=== PATIENT | female | born 1935 | race Caucasian/White ===

== ENCOUNTER 2024-02-19 10:56 | Emergency (ER) | payer OTHER, SELFPAY ==
[2024-02-19 11:05] VITALS: BP 136/87
[2024-02-19 11:34] LABS: Urine Albumin Trace (Neg - Trace); Urine Bilirubin Negative (Negative); Urine Character Clear (Clear); Urine Glucose Negative (Negative); Urine Ketone Trace (Negative); Urine Leukocyte Trace (Negative); Urine Nitrite Negative (Negative); Urine Occult Blood Trace (Negative); Urine Urobilinogen Negative (Neg - 1+)
[2024-02-19 11:35] LABS: Urine Color Yellow
[2024-02-19 11:40] VITALS: BP 132/77
--- NOTE | 2024-02-19 11:44 | ED.GENMED ---
History of Present Illness
General
Chief Complaint: Abdominal Pain
Source: patient
Exam Limitations: none
Time Seen by Provider: 02/19/24 11:32
Nursing documentation reviewed up to this point in time: agreed with
History of Present Illness
History of Present Illness:
88-year-old female with history of COPD, HTN, HLD, diverticulitis, GERD, hypothyroid, appendectomy, tubal ligation presents for 'pain from my waist down,' and abdominal bloating. [facility] and is
on amoxicillin for that, she states her abdominal pain is worsening. She also states she has started with diarrhea with inability to control her bowel movement. She denies blood in her stool. She denies fever or chills.
Past History
Past History
ED Past Medical History: Arrthythmia (PAF), Asthma, COPD, GERD, HTN, Hypercholesterolemia, Hypothyroidism and Other (UTI, Pylenephritis, Diverticulitis)
ED Past Surgical History: Appendectomy and Bowel resection (for diverticulitis)
Social History
Tobacco: Former smoker
Alcohol: None
Drug: None
Personal:
Living: alone
Employment: Retired
Family History
Family History: Other (Noncontributory)
Review of Systems
Review of Systems
Allergies reviewed?: Yes
All Other Systems: ROS reviewed and negative except as documented in HPI and ROS
Constitutional: Denies fever
Respiratory: Denies trouble breathing
Cardiac: Denies chest pain
ABD/GI: Reports abdominal pain, diarrhea and anorexia; Denies nausea, vomiting, bloody stools or black stools
: Denies dysuria, frequency or difficulty voiding
Musculoskeletal: Reports no symptoms
Skin: Reports no symptoms
Neurological: Reports no symptoms
Phy Exam
Physical Exam
Physical Exam:
GENERAL: No acute distress. A&Ox3. Elderly and frail, cachectic
CONSTITUTIONAL: Afebrile.
EYES: clear, conjunctivae normal
ENMT: moist mucus membranes, Pharynx nl
RESPIRATORY: Regular respirations, nonlabored, lungs clear.
CARDIOVASCULAR: Regular rate and rhythm, no murmurs, no rubs.
GI: Soft, distended, generally tender to palpation, normal BS
MUSCULOSKELETAL: Moves with ease. Well perfused.
SKIN: Warm, dry, pink
PSYCH: Normal mood and affect. Well kept, interactive and appropriate
NEUROLOGIC: Awake, alert and oriented. No focal neurological deficits
Course
Orders/Labs/Results
Orders:
Orders
02/19/24 11:20
Urinalysis Reflex To Culture Urgent
Date Specimen was Collected: 02/19/24
Time Specimen was Collected: 11:11
Urine Microscopic Reflex Cult Urgent
02/19/24 11:39
Complete Blood Count/With Diff Urgent
Comprehensive Metabolic Panel Urgent
Lipase Urgent
02/19/24 11:43
0.9% Sodium Chloride 500 ml [Nss] 500 ml IV BOLUS
02/19/24 11:44
CT Abd/pel W Iv And Oral Contr Urgent
Comment:
Reason For Exam: general abdomina pain and bloating
Iohexol [Omnipaque] See Protocol PO NOW STA
02/19/24 13:25
Stool Culture Urgent
JOSE Source: Feces/Stool
Specimen Description:
Date Specimen was Collected: 02/19/24
Time Specimen was Collected: 13:15
02/19/24 16:19
Acetaminophen [Tylenol] 1,000 mg PO NOW STA
02/19/24 16:21
Ketorolac [Toradol] 15 mg IV NOW STA
02/19/24 16:22
Lactic Acid Urgent
Abnormal Lab Results
02/19/24 02/19/24
11:20 11:39
WBC 14.9 H 10^3/uL
(4.8-10.8)
MCHC 32.8 L g/dL
(33.0-37.0)
Abs Immat Gran (auto) 0.1 H 10^3/uL
(0-0.05)
Absolute Neuts (auto) 12.2 H 10^3/uL
(1.4-6.5)
Absolute Lymphs (auto) 0.8 L 10^3/uL
(1.2-3.4)
Absolute Monos (auto) 1.7 H 10^3/uL
(0.1-0.6)
Neutrophils % 81.7 H %
(42.2-75.2)
Lymphocytes % 5.6 L %
(20.5-51.1)
Monocytes % 11.6 H %
(1.7-9.3)
Glucose 115 H mg/dl
(70-99)
Total Bilirubin 1.4 H mg/dl
(0.2-1.3)
Urine Ketones Trace A
(Negative)
Ur Occult Blood Reflex Trace A
(Negative)
Leukocyte Esterase Rfl Trace A
(Negative)
02/19/24 11:39
02/19/24 11:39
Vital Signs
Initial and Last Documented VS:
Initial Vital Signs
Temp Pulse Resp BP Pulse Ox
98.1 F 106 20 136/87 97
02/19/24 11:05 02/19/24 11:05 02/19/24 11:05 02/19/24 11:05 02/19/24 11:05
Last Documented Vital Signs
Temp Pulse Resp BP Pulse Ox
98.1 F 89 19 137/80 91
02/19/24 11:05 02/19/24 16:16 02/19/24 16:16 02/19/24 16:16 02/19/24 16:16
MDM/Problems Addressed
Differential Diagnosis Includes:
Diverticulitis, bowel obstruction, colitis, c-diff, ischemic bowel
MDM/Problems Addressed:
88-year-old female with history of COPD, HTN, HLD, diverticulitis, GERD, hypothyroid, appendectomy, tubal ligation presents for 'pain from my waist down,' and abdominal bloating. [facility] ago and is
on amoxicillin for that, she states her abdominal pain is worsening. She also states she has started with diarrhea with inability to control her bowel movement. She denies blood in her stool. She denies fever or chills.
Afebrile, NAD
CBC: WBC 14.9
CMP: Normal
UA negative
Lipase WNL
4:00 PM:
CT abdomen pelvis with p.o. and IV contrast radiology report read: IMPRESSION:
1).There is mild bowel wall thickening in the nondistended splenic flexure and proximal descending colon suggesting possible colitis..
2). Nonurgent findings include:
-Proximal sigmoid anastomosis
-Degenerative disc disease at L4-5
-Bilateral renal cysts
-Mild interstitial scarring in the posterior left lung base
Elderly frail female lives at home with and son, good family support. Afebrile, no dehydration, already on Augmentin for UTI
Pt states pain is 5/10 and she has a headache. Patient cannot swallow pills, Toradol 15 mg ordered for headache and to see if it will help her abdominal pain.
Lactic acid ordered
Lab reports that stool was too formed to do test for C. difficile or culture.
Lactic normal
Pt and family comfortable going home.
Return instructions reviewed
*Critical Care Note
Total Time (30-74mins, 75-104mins- exclusive of procedures): Not Applicable
ED Attending Note
-
Portions of this chart may have been created with voice recognition software.� Occasional wrong word or��sound alike� substitutions may have occurred due to the inherent limitations of voice recognition software.
Discharge Plan
Departure
Patient Disposition: Home (Routine Discharge)
Date of Disposition: 02/19/24
Time of Disposition: 16:46
Patient with high blood pressure during this ER visit?: No
Condition: Fair
Discharge Problem:
Colitis
Instructions: Clear Liquid Diet, [place] Diet, Colitis - Discharge instructions
Prescriptions:
No Action
aspirin 81 MG tablet,delayed release (DR/EC)
81 mg PO DAILY
budesonide 0.5 MG/2 ML suspension for nebulization
0.5 mg inhalation BID
tiotropium bromide [Spiriva with HandiHaler] 18 MCG capsule, w/inhalation device
18 mcg inhalation R DAILY Qty: 30 0RF
albuterol sulfate [Ventolin HFA] 90 MCG/PUFF HFA aerosol inhaler
1 puff inhalation PRN PRN (Reason: sob)
levalbuterol HCl 0.63 MG/3 ML solution for nebulization
0.63 mg inhalation BID
verapamil 180 MG tablet extended release
240 mg PO DAILY
famotidine 20 MG tablet
20 mg PO BID Qty: 28 0RF
Rx Instructions:
Take 20 mg twice a day for 14 days
cholecalciferol (vitamin D3) 1,000 UNITS tablet
2,000 units PO DAILY Qty: 28 0RF
Rx Instructions:
Take 2,000 units daily for 14 days
levothyroxine 100 MCG tablet
125 mcg PO DAILY@0700
doxycycline hyclate 100 MG capsule
100 mg PO Q12 Qty: 11 0RF
guaifenesin [Mucus Relief ER] 600 MG tablet extended release 12hr
600 mg PO Q12 0RF
prednisone 10 MG tablet
10 mg PO DAILY Qty: 30 0RF
Rx Instructions:
4 tabs daily x 3 days, 3 tabs daily x 3 days, 2 tabs daily x 3 days, 1 tab daily x 3 days.
Referrals:
Kevin Doshi DO [Family Provider] -
Zohreh Castano DO [Active] - Call in 1-3 days for appt
Activity Restrictions/Additional Instructions:
As we discussed, continue your Augmentin and finish it out as prescribed.
Call and make appointment to see the GI doctor next week.
Return here immediately for vomiting, worsening abdominal pain, bloody stools, fever or feeling sicker in any way.
Clear liquids for 2 days, then bland diet, then advance diet as tolerated
Interventions
Interventions:
*Risk Screen - Suicide Last Done: 02/19/24 11:05
*General Assessment Last Done: 02/19/24 11:05
*Neglect/Abuse Screening Last Done: 02/19/24 11:05
ED- Fall Risk Assessment Last Done: 02/19/24 12:00
[facility] Assessment Last Done: 02/19/24 12:00
Discharge Date and Time
Print Language: MALIAN
[2024-02-19 11:49] LABS: Urine Red Blood Cell 0-2 /HPF (0-2); Urine White Cell 0-2 /HPF (0-5)
[2024-02-19] MEDS: OMNIPAQUE 50 ML PO (11:53)
[2024-02-19] MEDS: NSS 500 IV (11:53)
[2024-02-19 11:56] LABS: % Basophils 0.4 % (0-2); % Eosinophils 0.3 % (0-6); % Immature Granulocytes 0.4 % (0-0.5); % Lymphocytes 5.6 % (20.5-51.1); % Monocytes 11.6 % (1.7-9.3); % Neutrophils 81.7 % (42.2-75.2); Absolute Basophils 0.1 10^3/uL (0-0.2); Absolute Immature Granulocytes 0.1 10^3/uL (0-0.05); Absolute Lymphocytes 0.8 10^3/uL (1.2-3.4); Absolute Monocytes 1.7 10^3/uL (0.1-0.6); Absolute Neutrophils 12.2 10^3/uL (1.4-6.5); Hematocrit 41.2 % (37.0-47.0); Hemoglobin 13.5 g/dL (12.0-16.0); Mean Corp Hgb Conc. 32.8 g/dL (33.0-37.0); Mean Corpuscular Volume 88.6 fL (81.0-99.0); Nucleated Red Blood Cells % 0 %; Platelet Count 259 10^3/uL (130-400); Red Blood Cell Count 4.65 10^6/uL (4.20-5.40); Red Cell Dist. Width 13.6 % (11.5-14.5); White Blood Cell Count 14.9 10^3/uL (4.8-10.8)
[2024-02-19 12:23] LABS: ALT (SGPT) 16 U/L (0-35); AST (SGOT) 24 U/L (14-36); Alkaline Phosphatase 103 U/L (38-126); Blood Urea Nitrogen 16 mg/dl (7-17); Carbon Dioxide 24 mmol/L (22-30); Chloride 100 mmol/L (98-107); Glucose 115 mg/dl (70-99); Potassium 4.1 mmol/L (3.5-5.1); Sodium 135 mmol/L (135-145); Total Bilirubin 1.4 mg/dl (0.2-1.3); Total Protein 6.8 g/dl (6.3-8.2); eGFR > 60.00
[2024-02-19 13:10] LABS: Lipase 67 U/L (23-300)
[2024-02-19 16:16] VITALS: BP 137/80
[2024-02-19] MEDS: TORADOL 15 MG IV (16:24)
[2024-02-19 16:39] LABS: Lactic Acid 0.8 mmol/L (0.7-2.0)
== END 2024-02-19 16:59 | disposition home or self-care (01) ==
LOC: EMR 10:56
PROVIDERS: Registered Nurse; EMERGENCY PHYSICIAN Emergency Medicine; FAMILY PHYSICIAN Internal Medicine
DX: K52.9 Noninfective gastroenteritis and colitis, unspecified (principal); N39.0 Urinary tract infection, site not specified; R14.0 Abdominal distension (gaseous); J44.89 Other specified chronic obstructive pulmonary disease; I10 Essential (primary) hypertension; E78.00 Pure hypercholesterolemia, unspecified; E03.9 Hypothyroidism, unspecified; K57.92 Diverticulitis of intestine, part unspecified, without perforation or abscess without bleeding; I48.0 Paroxysmal atrial fibrillation; K21.9 Gastro-esophageal reflux disease without esophagitis; Z79.82 Long term (current) use of aspirin; Z87.440 Personal history of urinary (tract) infections; Z87.01 Personal history of pneumonia (recurrent); Z87.891 Personal history of nicotine dependence; Z98.0 Intestinal bypass and anastomosis status; Z88.2 Allergy status to sulfonamides
CPT/HCPCS: 99284; 96374; 96361; 74177; 80053; 81003; 81015; 83605; 83690; 85025; 87045; 87046; 87427; Q9967

== ENCOUNTER → 2024-08-19 08:50 | Outpatient (REF) | payer OTHER, SELFPAY | LOC: RCS 08:50 | PROVIDERS: ATTENDING PHYSICIAN Internal Medicine; FAMILY PHYSICIAN Internal Medicine | DX: I47.10 Supraventricular tachycardia, unspecified (principal); I10 Essential (primary) hypertension; I36.1 Nonrheumatic tricuspid (valve) insufficiency; I34.0 Nonrheumatic mitral (valve) insufficiency; I27.20 Pulmonary hypertension, unspecified | CPT/HCPCS: 93306 ==